=== PATIENT | female | born 1945 | race Two or more races ===

== ENCOUNTER → 2023-01-06 | Emergency (ER) | payer OTHER ==
[~2023-01-06] VITALS: Ht 165.1 cm; Wt 49.9 kg
[~2023-01-06] MED LIST: LEVOTHYROXINE25 MCG PO
[2023-01-06 08:04] LABS: INR 1.03; PROTHROMBIN TIME 10.8 SECONDS (9.0-11.5)
[2023-01-06 08:14] LABS: HEMATOCRIT 42.8 % (36.0-45.00); MEAN CELL VOLUME 85.6 fL (80.00-100.00); MEAN CORPUSCULAR HGB CONC 32.7 g/dl (32.0-36.0); PLATELET COUNT 292 K/uL (150-450); RED CELL DISTRIBUTION WIDTH 14.7 % (11.5-14.5)
[2023-01-06 08:18] LABS: ALBUMIN 4.9 gm/dL (3.4-5.0); BILIRUBIN TOTAL 1.07 mg/dL (0.3-1.2); BILIRUBIN,CONJUGATED 0.36 mg/dL (0.0-0.2); BILIRUBIN,UNCONJUGATED 0.71 mg/dL (0.0-0.6); CALCIUM 9.6 mg/dL (8.5-10.1); CREATININE SERUM 2.04 mg/dL (0.55-1.02); GFR 23.55; GLOBULINA 3.6 G/DL (2.4-3.5); POTASSIUM 3.21 mEq/L (3.5-5.1); TOTAL PROTEIN 8.5 gm/dL (6.4-8.2)
== END | disposition left against medical advice (07) ==
LOC: ER 05:40
PROVIDERS: General Practice
DX: K31.89 Other diseases of stomach and duodenum (principal); R10.9 Unspecified abdominal pain; R11.0 Nausea; I10 Essential (primary) hypertension
CPT/HCPCS: 36415; 93005; 96365; 96366; 99284; J2405; J3490; J7030

== ENCOUNTER 2023-01-07 12:54 | Inpatient (IN) | payer OTHER ==
[~2023-01-07] VITALS: Ht 152.4 cm; Wt 589.7 kg
[2023-01-07 14:06] LABS: HEMATOCRIT 47.3 % (36.0-45.00); HEMOGLOBIN 15.7 g/dL (12.0-15.00); MEAN CELL VOLUME 84.6 fL (80.00-100.00); MEAN CORPUSCULAR HGB CONC 33.1 g/dl (32.0-36.0); PLATELET COUNT 300 K/uL (150-450); RED BLOOD COUNT 5.59 M/uL (4.00-6.00)
[2023-01-07 14:54] LABS: ALBUMIN 4.3 gm/dL (3.4-5.0); BILIRUBIN TOTAL 1.27 mg/dL (0.3-1.2); CALCIUM 9.1 mg/dL (8.5-10.1); CREATININE SERUM 3.8 mg/dL (0.55-1.02); GFR 11.49; GLOBULINA 3.9 G/DL (2.4-3.5); POTASSIUM 3.01 mEq/L (3.5-5.1); TOTAL PROTEIN 8.2 gm/dL (6.4-8.2)
[2023-01-07 15:19] LABS: URINE APPEARANCE Turbid; URINE BILIRRUBIN Negative (NEGATIVE); URINE BLOOD Large; URINE COLOR Yellow; URINE LEUKOCYTE Negative; URINE NITRATE Negative
[2023-01-07 15:23] LABS: URINE BACTERIA 590.9 uL (0.0-1933); URINE EPITHELIAL CELLS 135.1 uL (0.0-38.8); URINE RBC 24.2 uL (0.0-20.8); URINE WBC 67.2 uL (0.0-23.2)
[2023-01-07 15:26] LABS: URINE GLUCOSE >=1000 MG/DL (NEGATIVE); URINE PROTEIN 100 (NEGATIVE)
[2023-01-07 20:42] LABS: ABG PH 7.412 (7.35-7.45); ABG PO2 82.9 mmHg (80-100); ABG pCO2 36.4 mmHg (35-45); BASE EXCESS -1.4 mmol/l; BICARBONATE 22.7 mmol/l (23-25); SaO2 96.2 %; Tco2 23.8 mmol/l; allen test SATISFACTORY; o2 21 %; puncture site RADIAL RIGHT
[2023-01-08 01:00] LABS: CKMB 29.7 NG/ML (0.5-3.6)
[2023-01-08 03:02] LABS: URINE APPEARANCE Turbid; URINE BILIRRUBIN Small (NEGATIVE); URINE BLOOD Moderate; URINE COLOR Dark Yellow; URINE LEUKOCYTE Trace; URINE NITRATE Negative
[2023-01-08 03:16] LABS: URINE BACTERIA 835.3 uL (0.0-1933); URINE EPITHELIAL CELLS 132.9 uL (0.0-38.8); URINE GLUCOSE 250 MG/DL (NEGATIVE); URINE PROTEIN 100 (NEGATIVE); URINE RBC 304.1 uL (0.0-20.8)
[2023-01-08 06:35] LABS: HEMATOCRIT 49.2 % (36.0-45.00); HEMOGLOBIN 16.5 g/dL (12.0-15.00); MEAN CELL VOLUME 84.9 fL (80.00-100.00); MEAN CORPUSCULAR HEMOGLOBIN 28.5 pg (27.00-32.0); MEAN CORPUSCULAR HGB CONC 33.6 g/dl (32.0-36.0); PLATELET COUNT 362 K/uL (150-450); RED BLOOD COUNT 5.79 M/uL (4.00-6.00); RED CELL DISTRIBUTION WIDTH 14.9 % (11.5-14.5)
[2023-01-08 06:40] LABS: INR 1.48; PARTIAL THROMBOPLASTIN TIME 35.9 SECONDS (22.0-34.0)
[2023-01-08 06:41] LABS: PROTHROMBIN TIME 15.1 SECONDS (9.0-11.5)
[2023-01-08 08:47] LABS: ALBUMIN 2.8 gm/dL (3.4-5.0); BILIRUBIN TOTAL 2.17 mg/dL (0.3-1.2); BILIRUBIN,CONJUGATED 1.55 mg/dL (0.0-0.2); BILIRUBIN,UNCONJUGATED 0.62 mg/dL (0.0-0.6); CALCIUM 7.3 mg/dL (8.5-10.1); CHOL HDL RATIO 1.9 (0-5.0); GLOBULINA 2.9 G/DL (2.4-3.5); POTASSIUM 3.39 mEq/L (3.5-5.1); TOTAL PROTEIN 5.7 gm/dL (6.4-8.2)
[2023-01-08 09:07] LABS: C-REACTIVE PROTEIN 31.4 MG/DL (0.00-0.29); CKMB 24.8 NG/ML (0.5-3.6); CREATININE SERUM 4.12 mg/dL (0.55-1.02); GFR 10.46
[2023-01-08 11:31] LABS: ERYTHROCYTE SEDIMENTATION RATE 16 mm/hr
[2023-01-08 17:14] LABS: CKMB 14.1 NG/ML (0.5-3.6)
[2023-01-09 20:27] LABS: HEMATOCRIT 40.2 % (36.0-45.00); MEAN CELL VOLUME 84.1 fL (80.00-100.00); MEAN CORPUSCULAR HEMOGLOBIN 27.6 pg (27.00-32.0); MEAN CORPUSCULAR HGB CONC 32.8 g/dl (32.0-36.0); PLATELET COUNT 365 K/uL (150-450); RED BLOOD COUNT 4.78 M/uL (4.00-6.00); RED CELL DISTRIBUTION WIDTH 15.1 % (11.5-14.5)
[2023-01-09 21:23] LABS: BILIRUBIN TOTAL 2.27 mg/dL (0.3-1.2); CALCIUM 6.6 mg/dL (8.5-10.1); GFR 7.15; GLOBULINA 3.8 G/DL (2.4-3.5); POTASSIUM 3.01 mEq/L (3.5-5.1); TOTAL PROTEIN 5.8 gm/dL (6.4-8.2)
[2023-01-09 21:50] LABS: HEMOGLOBIN 13.2 g/dL (12.0-15.00)
[2023-01-09 21:53] LABS: CREATININE SERUM 5.73 mg/dL (0.55-1.02)
[2023-01-10 07:26] LABS: HEMOGLOBIN 11.9 g/dL (12.0-15.00); MEAN CELL VOLUME 83.2 fL (80.00-100.00); MEAN CORPUSCULAR HEMOGLOBIN 27.4 pg (27.00-32.0); MEAN CORPUSCULAR HGB CONC 32.9 g/dl (32.0-36.0); PLATELET COUNT 291 K/uL (150-450); RED BLOOD COUNT 4.33 M/uL (4.00-6.00); RED CELL DISTRIBUTION WIDTH 14.8 % (11.5-14.5)
[2023-01-10 08:16] LABS: ALBUMIN 1.8 gm/dL (3.4-5.0); BILIRUBIN TOTAL 1.88 mg/dL (0.3-1.2); GLOBULINA 2.6 G/DL (2.4-3.5); POTASSIUM 3.39 mEq/L (3.5-5.1); TOTAL PROTEIN 4.4 gm/dL (6.4-8.2)
[2023-01-10 08:38] LABS: C-REACTIVE PROTEIN 33.1 MG/DL (0.00-0.29); CALCIUM 5.7 mg/dL (8.5-10.1); CREATININE SERUM 6.02 mg/dL (0.55-1.02); GFR 6.76
[2023-01-10] MEDS ORDERED: FENOFIBRIC ACI135 MG (10:33)
[2023-01-10] MEDS ORDERED: METOPROLOL SUC100 MG (10:33)
[2023-01-10] MEDS ORDERED: PROLIA60 MG/1 ML (10:38)
[2023-01-10] MEDS ORDERED: SYNTHROID50 MCG (10:38)
[2023-01-10 19:07] LABS: CHOL HDL RATIO 9.1 (0-5.0); POTASSIUM 3.78 mEq/L (3.5-5.1)
[2023-01-10 19:13] LABS: GFR 7.02
[2023-01-10 20:17] LABS: CALCIUM 6.1 mg/dL (8.5-10.1); CREATININE SERUM 5.82 mg/dL (0.55-1.02)
[2023-01-11 07:46] LABS: HEMATOCRIT 35.3 % (36.0-45.00); HEMOGLOBIN 11.7 g/dL (12.0-15.00); MEAN CELL VOLUME 84.3 fL (80.00-100.00); MEAN CORPUSCULAR HEMOGLOBIN 27.9 pg (27.00-32.0); PLATELET COUNT 229 K/uL (150-450); RED BLOOD COUNT 4.18 M/uL (4.00-6.00); RED CELL DISTRIBUTION WIDTH 15.5 % (11.5-14.5)
[2023-01-12 07:23] LABS: ALBUMIN 1.5 gm/dL (3.4-5.0); BILIRUBIN TOTAL 0.73 mg/dL (0.3-1.2); GLOBULINA 2.7 G/DL (2.4-3.5); POTASSIUM 3.66 mEq/L (3.5-5.1); TOTAL PROTEIN 4.2 gm/dL (6.4-8.2)
[2023-01-12 07:30] LABS: T4 TOTAL 3.82 UG/DL (4.8-13.9); TSH 2.9 uIU/mL (0.358-3.74)
[2023-01-12 07:34] LABS: CALCIUM 5.8 mg/dL (8.5-10.1); CREATININE SERUM 4.46 mg/dL (0.55-1.02); GFR 9.55
[2023-01-13 07:06] LABS: ALBUMIN 1.6 gm/dL (3.4-5.0); BILIRUBIN TOTAL 0.66 mg/dL (0.3-1.2); CREATININE SERUM 3.54 mg/dL (0.55-1.02); GFR 12.47; GLOBULINA 2.8 G/DL (2.4-3.5); POTASSIUM 4.04 mEq/L (3.5-5.1); TOTAL PROTEIN 4.4 gm/dL (6.4-8.2)
[2023-01-13 07:54] LABS: CALCIUM 5.7 mg/dL (8.5-10.1)
[2023-01-14 06:51] LABS: HEMATOCRIT 37.3 % (36.0-45.00); HEMOGLOBIN 12.6 g/dL (12.0-15.00); MEAN CORPUSCULAR HEMOGLOBIN 27.3 pg (27.00-32.0); MEAN CORPUSCULAR HGB CONC 33.7 g/dl (32.0-36.0); PLATELET COUNT 255 K/uL (150-450); RED BLOOD COUNT 4.61 M/uL (4.00-6.00)
[2023-01-14 07:27] LABS: ALBUMIN 1.6 gm/dL (3.4-5.0); BILIRUBIN TOTAL 0.53 mg/dL (0.3-1.2); CREATININE SERUM 3.06 mg/dL (0.55-1.02); GFR 14.75; GLOBULINA 2.9 G/DL (2.4-3.5); POTASSIUM 4.58 mEq/L (3.5-5.1); TOTAL PROTEIN 4.5 gm/dL (6.4-8.2)
[2023-01-14 08:30] LABS: CALCIUM 6.5 mg/dL (8.5-10.1)
[2023-01-14 09:05] LABS: ERYTHROCYTE SEDIMENTATION RATE 105 mm/hr
[2023-01-16 08:42] LABS: CALCIUM 6.6 mg/dL (8.5-10.1); CREATININE SERUM 3.28 mg/dL (0.55-1.02); GFR 13.62; MAGNESIUM 2.6 mg/dL (1.8-2.4); PHOSPHOROUS 7.1 mg/dL (2.5-4.9); POTASSIUM 5.74 mEq/L (3.5-5.1)
[2023-01-16 09:10] LABS: HEMATOCRIT 30.7 % (36.0-45.00); MEAN CELL VOLUME 83.7 fL (80.00-100.00); MEAN CORPUSCULAR HEMOGLOBIN 27.2 pg (27.00-32.0); MEAN CORPUSCULAR HGB CONC 32.7 g/dl (32.0-36.0); PLATELET COUNT 308 K/uL (150-450); RED BLOOD COUNT 3.67 M/uL (4.00-6.00); RED CELL DISTRIBUTION WIDTH 16.5 % (11.5-14.5)
== END 2023-01-17 08:14 | disposition expired | DRG 380 ==
LOC: ER 12:54 → MEDJ 19:51 → ICU 01-09 21:52
PROVIDERS: Emergency Medicine; General Practice; Internal Medicine; Internal Medicine Endocrinology, Diabetes & Metabolism; ADMIT Internal Medicine; ATTEND Internal Medicine
PROC: BW40ZZZ Ultrasonography of Abdomen (ICD-10-PCS; 2023-01-07)
PROC: BF37ZZZ Magnetic Resonance Imaging (MRI) of Pancreas (ICD-10-PCS; 2023-01-07)
PROC: 4A12X4Z Monitoring of Cardiac Electrical Activity, External Approach (ICD-10-PCS; 2023-01-07)
PROC: BW21YZZ Computerized Tomography (CT Scan) of Abdomen and Pelvis using Other Contrast (ICD-10-PCS; 2023-01-08)
PROC: B24BYZZ Ultrasonography of Heart with Aorta using Other Contrast (ICD-10-PCS; 2023-01-08)
PROC: 0D9670Z Drainage of Stomach with Drainage Device, Via Natural or Artificial Opening (ICD-10-PCS; principal; 2023-01-09)
PROC: 3E0G76Z Introduction of Nutritional Substance into Upper GI, Via Natural or Artificial Opening (ICD-10-PCS; 2023-01-09)
PROC: 02HV33Z Insertion of Infusion Device into Superior Vena Cava, Percutaneous Approach (ICD-10-PCS; 2023-01-10)
DX: K31.1 Adult hypertrophic pyloric stenosis (principal); A41.9 Sepsis, unspecified organism; K85.90 Acute pancreatitis without necrosis or infection, unspecified; K63.1 Perforation of intestine (nontraumatic); K56.2 Volvulus; K72.00 Acute and subacute hepatic failure without coma; I21.A1 Myocardial infarction type 2; R65.21 Severe sepsis with septic shock; K65.9 Peritonitis, unspecified; I24.9 Acute ischemic heart disease, unspecified; N39.0 Urinary tract infection, site not specified; N17.9 Acute kidney failure, unspecified; E16.2 Hypoglycemia, unspecified; K44.9 Diaphragmatic hernia without obstruction or gangrene; Z66 Do not resuscitate; K59.00 Constipation, unspecified